=== PATIENT | female | born 1985 | race Caucasian/White ===

== ENCOUNTER 2018-01-28 08:21 | Inpatient (IN) | payer OTHER ==
[~2018-01-28] VITALS: Ht 154.9 cm; Wt 79.4 kg
[2018-01-28] MEDS ORDERED: PRENATAL TABLE1 EAC2 PO (09:35)
[2018-01-28 09:50] LABS: ABSOLUTE BASOPHIL COUNT 0 /CUMM (0.0-0.2); ABSOLUTE EOSINOPHIL COUNT 0.2 /CUMM (0.0-0.7); ABSOLUTE GRANULOCYTE CT 6.1 /CUMM (1.4-6.5); ABSOLUTE MONOCYTE COUNT 0.8 /CUMM (0.10-0.60); BASOPHIL % 0.3 % (0.0-2.0); GRANULOCYTE % 66.6 % (42.2-75.2); HEMATOCRIT 34.7 % (37-47); MEAN CORPUSCULAR HGB 29.9 PG (27.0-31.0); MEAN CORPUSCULAR HGB CONC 34.4 G/DL (33.0-37.0); MEAN CORPUSCULAR VOLUME 86.7 FL (81.0-99.0); MEAN PLATELET VOLUME 7.4 FL (7.4-10.4); PLATELET COUNT 235 /CUMM (130-400); RBC DISTRIBUTION WIDTH 14.2 % (11.5-14.5); RED BLOOD CELL CT 4.01 /CUMM (4.20-5.40); WHITE BLOOD CELL COUNT 9.1 /CUMM (4.8-10.8)
--- NOTE | 2018-01-28 14:38 | History & Physical ---
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
--- NOTE | 2018-01-29 09:25 | PN- OBGYN ---
Surgical Brief Attending Note Brief Attending Note: 32yo primipara at 41+w admitted yesterday for IOL for postdates. Yesterday she received 2 doses of intravaginal Cytotec, at 12:30pm and at 4:30pm. The Cytotec caused her to contract slightly for 1-2 hours on both applications, but those UCs dissipated. This morning her cervix is still 2cm/60%/VTX -3 and I feel she is ready for Pitocin. FHR tracing has been Category 1 all day and night. Patient has had plenty of opportunity to eat, ambulate, and shower. Abdi score 6, EFW 3600g, pelvis - adequate. Plan d/w patient including risks and benefits of Pitocin IOL, and she is in agreement with plan.
--- NOTE | 2018-01-29 10:07 | History & Physical ---
General Information and HPI MD Statement: I have seen and personally examined KELLI GUAN and documented this H&P. The patient is a 32 year old female at 41 weeks and 3 days gestation who presented with a chief complaint of induction of labor. Source of Information: patient, old records Exam Limitations: no limitations History of Present Illness: pt well known to our practice admitted for induction of labor for postdatism. 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 EENTM: Denies: blurred vision, double vision, visual changes. Cardiovascular: Denies: chest pain. Respiratory: Denies: cough, short of breath. GI: Denies: diarrhea, nausea, vomiting. Genitourinary: Denies: dysuria. Neurological/Psychological: Denies: anxiety, depressed. Exam & Diagnostic Data Last 24 Hrs of Vital Signs/I&O vss Obstetric Exam Wgt Gained During : 25# Pelvimetry: seems adequate Dilation (cm): 2 Effacement (%): 50 Station: -2 Membranes: intact Fluid: unknown Fundal Height (cm): 40 Multiple Gestation? No Contractions: rare Infant #1 - FHR Baseline: 144 Category: 1 Estimated Weight: 3500g Presentation: vtx Patient for Induction? Yes Abdi Score Abdi Score Response Value Cervix Position: posterior 0 Cervix Consistency: medium 1 Cervix Effacement: 0-30% 0 Cervix Dilation: 1-2 cm 1 Cervix Station: -2 1 Total 3 Physical Exam General Appearance Alert, Oriented X3, Cooperative, No Acute Distress Skin No Rashes HEENT Atraumatic Neck Supple Cardiovascular Regular Rate Lungs Clear to Auscultation Abdomen Normal Bowel Sounds, Soft, No Tenderness Neurological Normal Gait, Normal Speech, Strength at 5/5 X4 Ext Labs Blood Type & Rh: A pos Antibody Screen: neg Hct/Hgb & Platelets #1: 40.4/12.9/301 Hct/Hgb & Platelets #2: 36.7/11.7/261 Rubella: imm VDRL #1: nr VDRL #2: nr HbsAg: neg HIV #1: nr HIV #2 nr 1 Hr P Group B Strep: positive Initial Ultrasound: 06/22/17 9w 5d Anatomy Ultrasound: 09/05/2017 normal Genetic Testing: Cff DNA Negative NT Normal CF negative Assessment/Plan Assessment/Plan: postdates for induction of labor As Ranked By This Provider Problem List: 1. Post-dates Core Measures Venous Thromboembolism VTE Risk Factors / No Mechanical VTE Prophylaxis d/t LowRisk-No Interven Req'd No VTE Pharm Prophylaxis d/t LowRisk-No Interven Req'd Attending MD Review Statement Attending Statement Attending MD Statement: examined this patient, discussed with family, discussed w/nursing
--- NOTE | 2018-01-29 17:52 | PN- Obstetrical ---
Subjective Subjective: feeling better after epidural Review of Systems Constitutional: Denies: chills, fever. EENTM: Denies: blurred vision, double vision, visual changes. Cardiovascular: Denies: chest pain. Respiratory: Denies: cough. Objective Last 24 Hrs of Vital Signs/I&O vss Physical Exam General Appearance Alert, Oriented X3, Cooperative, No Acute Distress Obstetric Exam Dilation (cm): 7 Effacement (%): 50 Station: -2 Membranes: AROM Fluid: clear Multiple Gestation? No Contractions: Q3-4 Infant #1 - FHR Baseline: 144 Category: 1 Estimated Weight: 3500g Presentation: vtx Assessment/Plan Assessment/Plan progressing in active labor having early decyls and mild variables will decrease pitocin Problem List: 1. Post-dates Attending MD Review Statement Attending Statement Attending MD Statement: examined this patient, discussed with family, discussed with nursing
--- NOTE | 2018-01-30 03:38 | PN- OBGYN ---
Surgical Brief Attending Note Brief Attending Note: pT BECAME ANTERIOR LIP AND PUCHED PAST IT HOWEVER AFTER 90 MINUTES OF PUSHING COULD NOT BRING THE HEAD DOWN PAST 0 STATION PLAN FOR PRIMARY c/s
[2018-01-30 04:40] VITALS: BP 125/76
--- NOTE | 2018-01-30 05:15 | Labor & Delivery Summary ---
Delivery Summary Section: Section: primary Indication: ftp Anesthesia: EPIDURAL Placenta: Placenta: normal, 3 vessel, nuchal cord (x_) (1) Anesthesia: block Baby's Weight: 6# 10OZ Apgars - 1 Min: 9 Apgars - 5 Min: 9
--- NOTE | 2018-01-30 05:22 | Operative Report ---
Operative/Inv Procedure Report Surgery Date: 01/30/18 Name of Procedure: Primary low Transverse section Pre-Operative Diagnosis: Failure to progress Post-Operative Diagnosis: Same Estimated Blood Loss: 550 Surgeon/Consumer Affairs Specialist: Mayur Sanchez Cynthia Anesthesia: block Operative/Procedure Note Note: After topping off epidurall anesthesia the patient was placed in the left lateral tilt position Manriquez catheter was already placed and heart rate was noted to be 144 bpm after testing for adequacy of anesthesia a Pfannenstiel incision was made in the skin and carried down sharply to the fascia hemostasis was achieved with electrocautery. The Fascia was incised in the midline sharply and the incision was carried out laterally sharply. The fascia was divided from the underlying rectus muscles in the superior and inferior direction sharply. The rectus muscle bundles were divided in the midline sharply. It was noted that the manriquez was not draining it was replaced A bladder flap was created on the lower uterine segment. The lower uterine segment was entered in the midline sharply and the incision was carried out laterally bluntly. . was delivered through clear amnionic fluid vertex position atraumatically cord was doubly clamped and cut and the infant was handed to the pediatric attendant. The placenta was manually extracted and the interior of the uterus was wiped clean with wet laps. The uterus was externalized. The uterine incision was closed in 2 layers the first a running locking stitch the second an imbricating over the first 0 Polysorb sutures were used after checking for hemostasis the uterus was returned to its normal anatomic position the abdominal/perineal cavity was irrigated copiously once again the uterus was checked for hemostasis which was judged to be excellent. The parietal peritoneum was reapproximated in a simple running fashion with 0 Polysorb suture, subfascial planes were checked for hemostasis which was judged to be excellent. Fascia was then closed with 2 simple running sutures overlapping in the midline. Subcuticular tissues were irrigated copiously and hemostasis was achieved with electrocautery. A subcuticular Theo's fascia which was placed in a simple running fashion of 2-0 Polysorb. The skin was closed with rodrigue. Her uterus was expressed of a small amount of blood. The only drain left at the end of the procedure was a Manriquez catheter.
[2018-01-31 08:58] LABS: ABSOLUTE BASOPHIL COUNT 0 /CUMM (0.0-0.2); ABSOLUTE EOSINOPHIL COUNT 0.2 /CUMM (0.0-0.7); ABSOLUTE GRANULOCYTE CT 9.8 /CUMM (1.4-6.5); ABSOLUTE LYMPH COUNT 2.2 /CUMM (1.2-3.4); ABSOLUTE MONOCYTE COUNT 0.9 /CUMM (0.10-0.60); BASOPHIL % 0.4 % (0.0-2.0); EOSINOPHIL % 1.2 % (0-5); GRANULOCYTE % 74.5 % (42.2-75.2); HEMATOCRIT 31.1 % (37-47); MEAN CORPUSCULAR HGB 29.7 PG (27.0-31.0); MEAN CORPUSCULAR HGB CONC 33.7 G/DL (33.0-37.0); MEAN CORPUSCULAR VOLUME 88.1 FL (81.0-99.0); MEAN PLATELET VOLUME 7.1 FL (7.4-10.4); PLATELET COUNT 215 /CUMM (130-400); RBC DISTRIBUTION WIDTH 14.6 % (11.5-14.5); RED BLOOD CELL CT 3.53 /CUMM (4.20-5.40); WHITE BLOOD CELL COUNT 13.1 /CUMM (4.8-10.8)
--- NOTE | 2018-01-31 13:46 | PN- OBGYN ---
Surgical Brief Attending Note Brief Attending Note: PT FEELING WELL. AMB / VOID / DARRON PO. +FLATUS. +BF. PAIN WELL CONTROLLED AFEB, V/SS NAD ABD SOFT NT FF INC C/D/I MONY MIN LOCHIA EXT NT +1 B/L LE ED HCT 34-->31 a/p POD 1 S/P C/S, DOING WELL. MAY WANT TO GO HOME TOMORROW. -ROUTINE POP CARE -OOB / AMB -PAIN MGMT
[2018-02-01] MEDS ORDERED: IBUPROFEN800 M1 PO (09:41)
[2018-02-01] MEDS ORDERED: PERCOCET 5-3251 EACH PO (09:50)
--- NOTE | 2018-02-01 10:10 | Surgical Discharge Summary ---
Visit Information Visit Dates Admission Date: 01/28/18 Discharge Date: 02/01/18 History of Present Illness Medical History Isolation History: Standard Surgical History Pertinent Surgical History: none Psychosocial History What is Your Primary Language? Citizen Of [place] Hospital Course Allergies: Coded Allergies: latex (Mild, rash 01/30/18) Discharge Instructions Medications at Discharge Discharge Medications: Continue taking these medications: Vit No.130/Iron/FA ( Tablet) 27 MG IRON-800 MCG TABLET 1 Tablet ORAL DAILY Start taking the following new medications: Ibuprofen (Ibuprofen) 800 MG TABLET 800 Milligram ORAL EVERY SIX HOURS NEEDED as needed for PAIN SCALE 4-6 ( MODERATE) not to exceed 3 per day Qty = 30 Refills = 1 Instructions: take with food Comments: Last Taken: 02/01/18 Time: 0245 AM Oxycodone HCl/Acetaminophen (Percocet 5-325 MG Tablet) 5 MG-325 MG TABLET 1 Tablet ORAL EVERY 4 HOURS NEEDED as needed for PAIN SCALE 4-6 (MODERATE ) not to exceed 6 per day Qty = 10 No Refills Instructions: take with food
--- NOTE | 2018-02-01 10:38 | PN- OBGYN ---
Surgical Brief Attending Note Brief Attending Note: POD 2 I spoke with Corby, patient's nurse, by phone at 8:30am, and it was related to me that Ms. Alamo wished to go home this morning, 48 hours after her C/S. Patient was recovering well, and quickly. She was ambulating walking upright, tolerating all POs, voiding and demonstrating normal bowel function. Her pain is minimal and has been refusing Percocet, and taking Ibuprofen 800mg sparingly. The baby is also doing very well, and is ready for discharge. According to the patient's nurse, Ms. Alamo is afebrile, her BP and HR are normal, and her urine output is excellent. She has no cough or dyspnea. Per her nurse's evaluation her abdomen is soft and nontender, fundus if firm and nontender, there is no CVA tenderness, and lochia is mild rubra. Her incision is C/D/I with rodrigue in place. Also, her lower extremities have normal mild symmetrical edema without calf tenderness or redness. A/P: Patient's nurse feels that patient is more than ready for discharge, so I will accomodate the patient and approve her discharge this morning. Her discharge instructions and precautions will be reviewed in detail with her nurse , including direction to return to the [facility]3 days for follow-up and staple removal. She should arrange a postop appointment in our office in 2 weeks. Prescriptions for both Ibuprofen and Percocet were sent to her home pharmacy, for use as needed.
== END 2018-02-01 11:15 | DRG 766 ==
LOC: GNO 08:21
PROVIDERS: Obstetrics & Gynecology
PROC: 10D00Z1 Extraction of Products of Conception, Low, Open Approach (ICD-10-PCS; principal; 2018-01-30)
DX: O48.0 Post-term pregnancy (principal); Z3A.41 41 weeks gestation of pregnancy; Z37.0 Single live birth; O76 Abnormality in fetal heart rate and rhythm complicating labor and delivery; O32.4XX0 Maternal care for high head at term, not applicable or unspecified; Z87.891 Personal history of nicotine dependence
CPT/HCPCS: GNOP; GNOS; 36415; 80307; 81001; 87086; J0690; J1200; J1650; J1885; J7120